=== PATIENT | female | born 1985 | race Caucasian/White ===

== ENCOUNTER 2022-06-24 00:40 | Emergency (ER) | payer MEDICARE | END 2022-06-24 01:43 | disposition home or self-care (01) | LOC: CSHERS 00:40 | DX: L03.115 Cellulitis of right lower limb (principal); F17.210 Nicotine dependence, cigarettes, uncomplicated | CPT/HCPCS: 99283 ==

== ENCOUNTER 2022-10-14 19:07 | Emergency (ER) | payer MEDICARE ==
[2022-10-14] MEDS ORDERED: Ketorolac Tromethamine 30 MG/ML VIAL ONE (20:21)
== END 2022-10-14 20:32 | disposition home or self-care (01) ==
LOC: CSHERS 19:07
DX: H60.92 Unspecified otitis externa, left ear (principal); H66.92 Otitis media, unspecified, left ear; B35.1 Tinea unguium; F17.210 Nicotine dependence, cigarettes, uncomplicated
CPT/HCPCS: 96372; 99283; J1885

== ENCOUNTER 2024-10-27 09:23 | Emergency (ER) | payer MEDICARE, SELFPAY ==
[2024-10-27] MEDS ORDERED: Morphine 4 MG/ML VIAL ONE (09:39)
[2024-10-27] MEDS ORDERED: Lorazepam 2 MG/ML VIAL ONE (09:39)
[2024-10-27] MEDS ORDERED: Ketorolac Tromethamine 30 MG (1 mL) VIAL ONE (09:40)
[2024-10-27] MEDS ORDERED: Dexamethasone 10 MG/ML VIAL ONE (11:13)
== END 2024-10-27 11:44 | disposition home or self-care (01) ==
LOC: CSHERS 09:23
DX: M50.21 Other cervical disc displacement, high cervical region (principal); F17.290 Nicotine dependence, other tobacco product, uncomplicated
CPT/HCPCS: 72156; J1100; J1885; J2060; J2272; 96374; 96375

== ENCOUNTER 2025-10-02 01:43 | Emergency (ER) | payer MEDICARE, BC ==
[2025-10-02] MEDS ORDERED: HYDROmorphone 0.5 MG/0.5 ML SYRINGE ONE (04:05)
[2025-10-02] MEDS ORDERED: Lidocaine 1% (PF) 30 ML VIAL ONE (04:41)
== END 2025-10-02 05:42 | disposition home or self-care (01) ==
LOC: CSHERS 01:43
DX: M79.604 Pain in right leg (principal); F17.290 Nicotine dependence, other tobacco product, uncomplicated
CPT/HCPCS: 73564; 73590; 93971; J1171; J2003; J2270; 96374; 96375